=== PATIENT | male | born 1955 | race Caucasian/White ===

== ENCOUNTER → 2021-07-05 | Outpatient (CLI) | payer MEDICARE, OTHER | END | disposition home or self-care (01) | LOC: LAB SHORT 16:06 | DX: R30.9 Painful micturition, unspecified (principal) | CPT/HCPCS: 87077; 87086; 87186 ==

== ENCOUNTER 2022-09-13 07:26 | Day surgery (SDC) | payer MEDICARE, OTHER ==
[~2022-09-13] VITALS: Ht 167.6 cm; Wt 72.1 kg
[~2022-09-13 07:26] MED LIST: ASPI81CH PO; CLOP75 PO; Dyazide 37.5-21 EACH PO; FERSU300 PO; MECL25 PO; ONDA4 PO; ROSU10TA PO
--- NOTE | 2022-09-13 11:15 | NUR ---
3 cc AIR HAD BEEN RELEASED, BLEEDING NOTED. 3 CC AIR BACK IN, WILL CONTINUE TO MONITOR
--- NOTE | 2022-09-13 12:06 | NUR ---
10 CC OF AIR REMOVED OUT OF NOW DEFLATED RIGHT TR BAND OVER 20 MIN. SOFT NON-TENDER WITH NO HEMATOMA, NO PULSATILE BLEEDING AND WRIST BOARD IN PLACE.
--- NOTE | 2022-09-13 12:06 | NUR ---
DISCHARGE REVIEWED WITH PT AND , BOTH VERBALIZE UNDERSTANDING OF INSTRUCTIONS. NO FURTHER QUESTIONS.
--- NOTE | 2022-09-13 13:00 | NUR ---
PT DRESSED WITH ASSISTANCE. TR BAND REMOVED WITH CATHETER INTACT, AREA CLEANSED AND CLOTH DOT DRESSING PLACED. ARM BOARD TO R FOREARM AND R ARM PLACED IN SLING. SALINE LOCK REMOVED WITH CATHTER INTACT. DISCHARGE GONE OVER AGAIN AND ALL QUESTIONS ANSWERED. PT DISCHARGED PER W/C WITH ONE STAFF.
== END 2022-09-13 13:07 | disposition home or self-care (01) ==
LOC: MHTC 07:26
DX: I25.10 Atherosclerotic heart disease of native coronary artery without angina pectoris (principal); R07.89 Other chest pain; E78.5 Hyperlipidemia, unspecified; Z88.8 Allergy status to other drugs, medicaments and biological substances
CPT/HCPCS: 76937; 93454; 99152; 99153; C1769; C1887; C1894; J0461; J1644; J2250; J3010; J7030; J7050; Q9967

== ENCOUNTER 2023-04-22 09:42 | Emergency (ER) | payer MEDICARE, OTHER ==
[~2023-04-22] VITALS: Ht 167.6 cm; Wt 72.6 kg
[2023-04-22 10:36] LABS: BASOPHILS ABSOLUTE AUTO 0.05 K/mm3 (0.00-0.23); BASOPHILS PERCENT AUTO 1 % (0-2); EOSINOPHILS ABSOLUTE AUTO 0.22 K/mm3 (0.00-0.68); EOSINOPHILS PERCENT AUTO 3 % (0-6); Hematocrit 32.5 % (37.0-53.0); Hemoglobin 11.4 g/dL (13.5-17.5); IMMATURE GRAN ABSOLUTE AUTO 0.02 K/mm3 (0.00-0.10); IMMATURE GRAN PERCENT AUTO 0 % (0-1); LYMPHOCYTES ABSOLUTE AUTO 1.31 K/mm3 (0.84-5.20); LYMPHOCYTES PERCENT AUTO 20 % (21-46); MONOCYTES ABSOLUTE AUTO 0.83 K/mm3 (0.16-1.47); MONOCYTES PERCENT AUTO 13 % (4-13); Mean Corpuscular HGB 32.2 pg (26.0-34.0); Mean Corpuscular HGB Conc 35.1 g/dL (31.5-36.5); Mean Corpuscular Volume 92 fL (80-100); Mean Platelet Volume 10.3 fL (9.1-12.4); NEUTROPHILS ABSOLUTE AUTO 4.22 K/mm3 (1.96-9.15); NEUTROPHILS PERCENT AUTO 63 % (41-73); Platelet Count 249 K/mm3 (150-400); RDW Coefficient Variation 12.6 % (11.7-14.2); RDW Standard Deviation 42.2 fL (35.1-46.3); Red Blood Cell Count 3.54 M/mm3 (4.30-5.90); White Blood Cell Count 6.65 K/mm3 (4.00-11.30)
[2023-04-22 10:57] LABS: Albumin, Blood 3.8 g/dL (3.4-5.0); Albumin/Globulin Ratio 1.2 (0.8-1.8); Bilirubin, Total 0.4 mg/dL (0.1-1.0); Bun/Creatinine Ratio 16.4 (12.0-20.0); Calcium, Blood 9.4 mg/dL (8.5-10.1); Creatinine, Blood 2.01 mg/dL (0.60-1.20); Globulin, Blood 3.2 g/dL (2.2-4.0); Potassium, Blood 4.2 mmol/L (3.5-5.5)
[2023-04-22] MEDS ORDERED: ASCO500 PO (11:31)
[2023-04-22] MEDS ORDERED: Crestor40 MG PO (11:33)
[2023-04-22] MEDS ORDERED: TAMSULOSIN HCL0.4 M1 PO (11:34)
[2023-04-22 13:09] VITALS: BP 115/65
== END 2023-04-22 13:11 | disposition home or self-care (01) ==
LOC: ER 09:42
PROVIDERS: Physician Assistant
DX: R07.89 Other chest pain (principal); R00.1 Bradycardia, unspecified; Z88.8 Allergy status to other drugs, medicaments and biological substances; Z79.899 Other long term (current) drug therapy; Z79.82 Long term (current) use of aspirin; I25.10 Atherosclerotic heart disease of native coronary artery without angina pectoris; E78.5 Hyperlipidemia, unspecified; N18.9 Chronic kidney disease, unspecified; Z87.891 Personal history of nicotine dependence
CPT/HCPCS: 71046; 80053; 83880; 84484; 85025; 93005; 93010; 99285-25

== ENCOUNTER 2024-01-26 09:27 | Day surgery (SDC) | payer MEDICARE, OTHER ==
[~2024-01-26] VITALS: Ht 167.6 cm; Wt 68.8 kg
[~2024-01-26 09:27] MED LIST changes: +ASCO500 PO; +Crestor40 MG PO; +Lactated Ringer's 1,000 ML IV ONE; +TAMSULOSIN HCL0.4 M1 PO; +propofoL 50 ML IV ONE
[2024-01-26] MEDS ORDERED: ALBU90OI (09:55)
[2024-01-26] MEDS ORDERED: DURAMORPH 11 MG/1 M1 (09:56)
[2024-01-26] MEDS ORDERED: FURO20 (09:57)
[2024-01-26] MEDS ORDERED: NITROFURANTOIN25 MG (09:57)
[2024-01-26] MEDS ORDERED: PANT40 (09:57)
[2024-01-26] MEDS ORDERED: NITRO-DUR1 EACH (09:57)
[2024-01-26] MEDS ORDERED: Lactated Ringer's 1,000 ML IV ONE (10:18)
[2024-01-26 11:10] VITALS: BP 116/70
== END 2024-01-26 11:26 | disposition home or self-care (01) ==
LOC: ORSCSDS 09:27
PROVIDERS: Internal Medicine Gastroenterology
PROC: 0DJ08ZZ Inspection of Upper Intestinal Tract, Via Natural or Artificial Opening Endoscopic (ICD-10-PCS; principal; 2024-01-26 10:15)
DX: R07.89 Other chest pain (principal); R13.10 Dysphagia, unspecified; R12 Heartburn; K21.9 Gastro-esophageal reflux disease without esophagitis; R11.10 Vomiting, unspecified; Z95.1 Presence of aortocoronary bypass graft; N18.4 Chronic kidney disease, stage 4 (severe); Z79.899 Other long term (current) drug therapy
CPT/HCPCS: J2704; J7120